=== PATIENT | female | born 1945 | race Caucasian/White ===

== ENCOUNTER 2021-05-26 05:34 | Day surgery (SDC) | payer MEDICARE, MEDICAID ==
[2021-05-21 16:21] LABS: BASOPHILS # (AUTO) 0.1 X10'3 (0-0.2); BASOPHILS % (AUTO) 0.8 % (0-1); EOSINOPHILS % (AUTO) 0.7 % (0-6); LYMPHOCYTES # (AUTO) 1.9 X10'3 (1.1-4.8); LYMPHOCYTES % (AUTO) 28.9 % (21-51); MEAN CORPUSCULAR HEMOGLOBIN 29.9 PG (27.0-31.0); MEAN CORPUSCULAR HGB CONC 34.5 g/dL (33.0-36.5); MEAN CORPUSCULAR VOLUME 86.5 FL (78-98); MEAN PLATELET VOLUME 8.4 FL (7.4-10.4); MONOCYTES # (AUTO) 0.6 X10'3 (0-0.9); NEUTROPHILS # (AUTO) 3.9 X10'3 (1.8-7.7); NEUTROPHILS % (AUTO) 60.6 % (42-75); PRE OP HEMATOCRIT 40.4 % (35.0-45.0); PRE OP HEMOGLOBIN 13.9 g/dL (12.0-16.0); PRE OP PLATELET COUNT 322 X10'3 (140-440); RED BLOOD COUNT 4.66 X10'6 (4.20-5.60); RED CELL DISTRIBUTION WIDTH 12.2 % (11.5-14.5)
[2021-05-21 16:36] LABS: ALBUMIN 4.1 G/DL (3.4-5.0); ALBUMIN/GLOBULIN RATIO 1.1 (1.1-1.5); ALKALINE PHOSPHATASE 99 IU/L (46-116); BLOOD UREA NITROGEN 11 MG/DL (7-18); BUN/CREATININE RATIO 14.3 (6.6-38.0); CALCIUM 9.2 MG/DL (8.5-10.1); CHLORIDE 105 MMOL/L (99-107); CREATININE 0.77 MG/DL (0.40-0.90); PRE OP ALT 27 U/L (30-65); PRE OP ANION GAP 12 (8-16); PRE OP AST 20 U/L (10-37); PRE OP GLUCOSE 88 MG/DL (70-104); PRE OP SODIUM 142 MMOL/L (135-145); TOTAL CARBON DIOXIDE 25.5 MMOL/L (24-32); TOTAL PROTEIN 7.8 G/DL (6.4-8.2); eGFR 73 ML/MIN
[2021-05-21 16:39] LABS: PRE OP POTASSIUM 3.2 MMOL/L (3.4-5.1)
[~2021-05-26] VITALS: Ht 160 cm; Wt 66.2 kg
[2021-05-26] VITALS (7 sets, daily range): BP systolic 137–149; BP diastolic 62–75
[~2021-05-26 05:34] MED LIST: ESOM40CA49 PO; FLUO40CA PO; MELA10TA PO; NAPR220T67 PO; SIMV-45 PO; ZOLP10TA PO; cefazolin/dext.iso 2gm/50ml IV ONE; famotidine 20mg tablet PO ONE; ringers solution, lacted 1,000 ML IV SCH
[2021-05-26 06:29] LABS: ISTAT CREATININE 0.7 mg/dL (0.6-1.1); ISTAT HGB 12.9 g/dl (12.0-16.0); ISTAT IONIZED CALCIUM 1.27 mmol/L (1.03-1.32); ISTAT K 3.5 mmol/L (3.5-5.1); POC BUN/CREATININE RATIO 18.6 (6.6-38.0)
[2021-05-26] MEDS ORDERED: BUPIVAcaine 0.5% inj/PF 30 ML ONE (07:01)
[2021-05-26] MEDS ORDERED: meperidine/PF 25mg/ml syringe IV PRN ×3 (07:20)
[2021-05-26] MEDS ORDERED: morphine 2 MG/ML inj. syringe IV PRN (07:20)
[2021-05-26] MEDS ORDERED: ondansetron/PF 4mg/2ml inj IV PRN (07:20)
[2021-05-26] MEDS ORDERED: ringers solution, lacted 1,000 ML IV SCH (07:20)
[2021-05-26] MEDS ORDERED: morphine 4 MG/ML inj SYRINge IV PRN (07:20)
[2021-05-26] MEDS ORDERED: proCHLORperazine 10 MG/2 ml inj IV PRN (07:20)
[2021-05-26] MEDS ORDERED: BUPIVAcaine 0.5% inj/PF 30 ml vial IJ ONE (08:00)
[2021-05-26] MEDS ORDERED: midazolam 1 mg/ML 2ml injection ONE (08:04)
[2021-05-26] MEDS ORDERED: LIDOcaine 0.5% (5mg/ml) 50ml vial ONE (08:04)
[2021-05-26] MEDS ORDERED: fentaNYL/PF 50MCG/1 ML 2ML syringe ONE (08:04)
[2021-05-26] MEDS ORDERED: propofol inj 20 ML IV ONE (08:24)
--- NOTE | 2021-05-26 08:40 | NUR ---
ADMITTED TO PACU FROM OR ACCOMPANIED BY ANESTHESIA. INTIAL PHYSICAL ASSESSMENT DONE AND RECORDED. REPORT RECEIVED FROM ANESTHESIA.
--- NOTE | 2021-05-26 09:30 | NUR ---
DISCHARGE CRITERIA MET, DISCHARGE INSTRUCTIONS GIVEN, DEMONSTRATES VERBAL UNDERSTANDING. DISCHARGED HOME IN GOOD CONDITION.
== END 2021-05-26 09:30 | disposition home or self-care (01) ==
LOC: PAS 05:34
PROVIDERS: ATTEND Orthopaedic Surgery Hand Surgery
DX: G56.01 Carpal tunnel syndrome, right upper limb (principal); G56.21 Lesion of ulnar nerve, right upper limb; E78.5 Hyperlipidemia, unspecified; F32.9 Major depressive disorder, single episode, unspecified; G47.00 Insomnia, unspecified; Z96.652 Presence of left artificial knee joint; Z79.899 Other long term (current) drug therapy; Z72.89 Other problems related to lifestyle; Z98.890 Other specified postprocedural states; Z87.442 Personal history of urinary calculi; Z85.828 Personal history of other malignant neoplasm of skin; Z87.11 Personal history of peptic ulcer disease; Z20.822 Contact with and (suspected) exposure to COVID-19
CPT/HCPCS: 36415; 64718; 64721; 80047; 80053; 85025; 93005; J0690; J2250; J2704; J3010; J3490; J7030; J7120; S0020; U0003; U0005; Z7506; Z7512; A4215; A6449

== ENCOUNTER 2022-05-22 08:47 | Day surgery (SDC) | payer MEDICARE, MEDICAID ==
[2022-05-20 11:30] LABS: BASOPHILS % (AUTO) 0.3 % (0-1); EOSINOPHILS % (AUTO) 0.2 % (0-6); LYMPHOCYTES # (AUTO) 1.5 X10'3 (1.1-4.8); MEAN CORPUSCULAR HEMOGLOBIN 29.1 PG (27.0-31.0); MEAN CORPUSCULAR HGB CONC 33.5 g/dL (33.0-36.5); MEAN PLATELET VOLUME 7.9 FL (7.4-10.4); MONOCYTES # (AUTO) 0.6 X10'3 (0-0.9); MONOCYTES % (AUTO) 9.7 % (2-12); NEUTROPHILS # (AUTO) 4.4 X10'3 (1.8-7.7); NEUTROPHILS % (AUTO) 66.8 % (42-75); PRE OP HEMATOCRIT 39.2 % (35.0-45.0); PRE OP HEMOGLOBIN 13.1 g/dL (12.0-16.0); PRE OP PLATELET COUNT 340 X10'3 (140-440); RED CELL DISTRIBUTION WIDTH 12.5 % (11.5-14.5)
[2022-05-20 14:42] LABS: ALBUMIN 3.7 G/DL (3.4-5.0); ALKALINE PHOSPHATASE 84 IU/L (46-116); BLOOD UREA NITROGEN 7 MG/DL (7-18); BUN/CREATININE RATIO 9.5 (6.6-38.0); CALCIUM 9.5 MG/DL (8.5-10.1); CHLORIDE 104 MMOL/L (99-107); CREATININE 0.74 MG/DL (0.40-0.90); PRE OP ALT 19 U/L (30-65); PRE OP ANION GAP 10 (8-16); PRE OP AST 20 U/L (10-37); PRE OP GLUCOSE 96 MG/DL (70-104); PRE OP SODIUM 145 MMOL/L (135-145); TOTAL CARBON DIOXIDE 30.9 MMOL/L (24-32); TOTAL PROTEIN 7.3 G/DL (6.4-8.2); eGFR 77 ML/MIN
[2022-05-20 15:07] LABS: PRE OP POTASSIUM 3.2 MMOL/L (3.4-5.1)
[~2022-05-22] VITALS: Ht 160 cm; Wt 66.1 kg
[2022-05-22] VITALS (7 sets, daily range): BP systolic 147–158; BP diastolic 75–81
[~2022-05-22 08:47] MED LIST changes: -ESOM40CA49 PO; -MELA10TA PO; -NAPR220T67 PO; +ceFAZolin inj. 2,000 MG in dextrose 5%-water 100 ML IV ONE; -cefazolin/dext.iso 2gm/50ml IV ONE
[2022-05-22] MEDS ORDERED: fentaNYL/PF 50MCG/1 ML 2ML syringe IV PRN ×2 (09:25)
[2022-05-22] MEDS ORDERED: morphine 4 MG/ML inj SYRINge IV PRN (09:25)
[2022-05-22] MEDS ORDERED: morphine 2 MG/ML inj. syringe IV PRN (09:25)
[2022-05-22] MEDS ORDERED: labetalol 20mg/4ml (5mg/ml) syringe IV PRN (09:25)
[2022-05-22] MEDS ORDERED: ringers solution, lacted 1,000 ML IV SCH (09:25)
[2022-05-22] MEDS ORDERED: ondansetron/PF 4mg/2ml inj IV PRN (09:25)
[2022-05-22] MEDS ORDERED: hydrALAZINE 20mg/ml inj. IV PRN (09:25)
[2022-05-22] MEDS ORDERED: BUPIVAcaine/PF 5 mg/ml 10ml ONE (11:22)
[2022-05-22] MEDS ORDERED: LIDOcaine 0.5% (5mg/ml) 50ml vial ONE (11:38)
[2022-05-22] MEDS ORDERED: propofol inj 20 ML IV ONE (11:53)
--- NOTE | 2022-05-22 12:04 | NUR ---
Received from OR via [facility] , accompanied by Anesthesiologist MIKE and report given by Anesthesiolgist. PATIENT WITH 20G PIV IN LEFT UE RUNNING LR AT 100. DENIES PAIN. DONNED ICE UPON ARRIVAL. VSS. PATIENT RESTING COMFORTABLY AT THIS TIME. Addendum: 05/22/22 at 1240 by Balbir Govea RN, RN Amended: Links added.
--- NOTE | 2022-05-22 12:54 | NUR ---
ALL DC CRITERIA HAS BEEN MET. VSS. DENIES PAIN LEFT WRIST DRESSING IS CDI. PATIENTS RIDE AVAILABEL TO TAKE PATIENT HOME. ALL QUESTIONS ANSWERED AND PATIENT UNDERSTOOD ALL DC INSTRUCTIONS. Addendum: 05/22/22 at 1301 by Balbir Govea RN, RN Amended: Links added.
== END 2022-05-22 12:54 | disposition home or self-care (01) ==
LOC: PRE-OP 08:47
PROVIDERS: ATTEND Orthopaedic Surgery Hand Surgery
DX: G56.02 Carpal tunnel syndrome, left upper limb (principal); F32.9 Major depressive disorder, single episode, unspecified; G47.00 Insomnia, unspecified; Z87.442 Personal history of urinary calculi; Z96.652 Presence of left artificial knee joint; Z79.899 Other long term (current) drug therapy; Z98.890 Other specified postprocedural states; Z85.828 Personal history of other malignant neoplasm of skin; Z72.89 Other problems related to lifestyle
CPT/HCPCS: 29848; 36415; 80053; 82948; 85025; 93005; J0690; J2704; J3490; J7030; J7060; J7120; Z7506; Z7512; A4215; A7000